=== PATIENT | female | born 1980 | race Caucasian/White ===

== ENCOUNTER → 2017-09-16 | Outpatient (CLI) | payer OTHER ==
[2017-09-16 13:06] LABS: BASO % 1.5 %; EOS % 3.3 %; EOS ABS # 0.22 K/uL (0-0.5); HEMATOCRIT 36.8 % (37-47); HEMOGLOBIN 12.3 g/dL (12.0-16.0); IG# 0.03 K/uL (0.00-0.02); LYMPH % 37.2 %; LYMPH ABS # 2.45 K/uL (1.2-3.4); MEAN CORPUSCULAR HEMOGLOBIN 30.1 pg (25-34); MEAN CORPUSCULAR HGB CONC 33.4 g/dl (32-36); MEAN PLATELET VOLUME 10.5 fL (7.4-10.4); MONO % 7.1 %; MONO ABS # 0.47 K/uL (0.11-0.59); NEUT % 50.4 %; NEUT ABS # 3.32 K/uL (1.4-6.5); PLATELET COUNT 422 K/uL (130-400); RED CELL DISTRIBUTION WIDTH SD 42.2 fL (36.4-46.3); WHITE BLOOD COUNT 6.59 K/uL (4.8-10.8)
[2017-09-16 13:32] LABS: ALBUMIN 4.3 gm/dl (3.4-5.0); ALT/SGPT 43 U/L (12-78); AST/SGOT 25 U/L (15-37); BLOOD UREA NITROGEN 13 mg/dl (7-18); CALCIUM 9.2 mg/dl (8.5-10.1); CARBON DIOXIDE 24 mmol/L (21-32); CREATININE 1.05 mg/dl (0.60-1.20); GLUCOSE 89 mg/dl (70-99); POTASSIUM 3.9 mmol/L (3.5-5.1); SODIUM 135 mmol/L (136-145)
[2017-09-16 13:34] LABS: ALKALINE PHOSPHATASE 65 U/L (45-117); TOTAL PROTEIN 7.8 gm/dl (6.4-8.2)
== END | disposition home or self-care (01) ==
LOC: C.LABBC 09:11
DX: Z01.812 Encounter for preprocedural laboratory examination (principal); N92.1 Excessive and frequent menstruation with irregular cycle

== ENCOUNTER → 2018-01-28 | Outpatient (CLI) | payer OTHER ==
--- NOTE | 2018-01-28 14:34 | DIAGNOSTIC IMAGING REPORT ---
MRI THE RIGHT KNEE NO CONTRAST CLINICAL HISTORY: Right knee pain COMPARISON STUDY: No previous studies for comparison. FINDINGS: Imaging was performed in the axial, sagittal, and coronal planes. The quadriceps and patellar tendons appear normal. The anterior and posterior cruciate ligaments appear normal. The medial and lateral collateral ligaments appear normal. There is a cartilaginous defect with subchondral marrow edema involving the lateral patellar facet. The appearance favors a postsurgical defect. Clinical correlation in this regard is advocated. The lateral meniscus appears normal. There is irregularity of the anterior horn of the medial meniscus. While a tear cannot be excluded, it is favored that this represents a developmental variant. This finding was reviewed with a fellow radiologist. IMPRESSION: 1. No evidence of cruciate or collateral ligament disruption 2. No evidence of patellar tendinitis 3. Normal lateral meniscus 4. Irregularity of the anterior horn the medial meniscus. A developmental variant is favored over a true tear. Electronically signed by: Mando Rich M.D. 01/28/2018 2:33 PM Dictated Date/Time: 01/28/2018 2:19 PM
== END | disposition home or self-care (01) ==
LOC: C.MRI 11:45
PROVIDERS: ATTEND Orthopaedic Surgery Sports Medicine
DX: M25.561 Pain in right knee (principal)

== ENCOUNTER → 2018-05-11 | Outpatient (CLI) | payer OTHER | END | disposition home or self-care (01) | LOC: C.LAB 07:33 | PROVIDERS: ATTEND Family Medicine | DX: Z00.00 Encounter for general adult medical examination without abnormal findings (principal); E03.9 Hypothyroidism, unspecified ==